=== PATIENT | female | born 1930 | race Caucasian/White ===

== ENCOUNTER → 2016-08-12 | Outpatient (CLI) | payer MEDICARE ==
[~2016-08-12] MED LIST: CEPH-331 PO; CEPH-507 PO; EYE VITAMIN PO; HCTZ12.5T PO; LEVO100T PO; METO-272 PO; MULT-955 PO; NFLOSA25TA PO; OLME5TAB3 PO; OMEG1CAP61 PO; PRV20T PO; SULF-228 PO; VERA180C2 PO
--- NOTE | 2016-08-13 19:27 | Diagnostic Imaging Report ---
DIG [place] BILAT SCREEN W CAD COMPARISON: 08/08/2015 and 03/30/2014. INDICATION: Screening mammography. TECHNIQUE: Digital screening mammography was obtained with a computer-aided detection (CAD) system. FINDINGS: The breasts are heterogeneously dense, which may obscure small masses. Stable scattered bilateral benign calcified oil cysts and vascular calcifications. No suspicious microcalcifications. No architectural distortion or dominant mass to suggest malignancy. Probable intramammary lymph node in the posterior right upper outer quadrant is unchanged. IMPRESSION: Stable mammogram without evidence of malignancy. Followup screening mammogram in 12 months is recommended. ACR BI-RADS Category 2: Benign findings. Result letter will be mailed to the patient. Note: At least 10% of breast cancer is not imaged by mammography. Dictated by: Dictated on workstation # [id number]
== END ==
LOC: RAD 08:27
PROVIDERS: ATTEND Internal Medicine
DX: Z12.31 Encounter for screening mammogram for malignant neoplasm of breast (principal)

== ENCOUNTER → 2016-08-26 | Outpatient (CLI) | payer MEDICARE ==
--- NOTE | 2016-08-26 18:07 | Diagnostic Imaging Report ---
INDICATION: Fall one month ago with chronic back pain. Comparison with 07/18/2016. FINDINGS: There is a new superior endplate compression fracture of T11 with approximately 30% loss of body height. No other acute findings are noted. Hypertrophic bony lipping of the endplates noted throughout the lower thoracic region anteriorly. IMPRESSION: Acute compression fracture of superior endplate of T11 with approximately 30% loss of body height. This is a new finding when compared with 07/18/2016. Dictated by: Dictated on workstation # [id number]
== END ==
LOC: RAD 16:53
PROVIDERS: ATTEND Internal Medicine
DX: M54.6 Pain in thoracic spine (principal); M85.88 Other specified disorders of bone density and structure, other site; M48.54XA Collapsed vertebra, not elsewhere classified, thoracic region, initial encounter for fracture; Z91.81 History of falling
CPT/HCPCS: 72072

== ENCOUNTER 2016-10-21 13:30 | Outpatient (RCR) | payer MEDICARE ==
[2016-10-21] MEDS ORDERED: SODIUM CHLORIDE FLUSH 10 ML SYR IV PRN (13:35)
[2016-10-21] MEDS ORDERED: ZOLEDRONIC ACID 5 MG/100 ML 100 ML IV ONE (13:35)
[2016-10-21 13:52] VITALS: BP 141/84
== END 2016-10-21 14:50 | disposition home or self-care (01) ==
LOC: OB 13:39 → EUOP 14:50
PROVIDERS: ATTEND Internal Medicine
DX: M81.0 Age-related osteoporosis without current pathological fracture (principal)
CPT/HCPCS: 96365; J3489